=== PATIENT | female | born 1985 | race Caucasian/White ===

== ENCOUNTER 2018-09-11 15:16 | Inpatient (IN) | payer MEDICAID, OTHER ==
[~2018-09-11] VITALS: Ht 149.9 cm; Wt 59.1 kg
[2018-09-11] MEDS ORDERED: CLINDAMYCIN PMX 900MG/50ML 50 ML IV ONE (16:00)
[2018-09-11] MEDS ORDERED: SODIUM CHLORIDE FLUSH 10ML SYR IVF ONE (16:00)
[2018-09-11] MEDS ORDERED: SODIUM CHLORIDE 0.9% 1,000ML IVBOLUS ONE ×2 (16:00→18:00)
--- NOTE | 2018-09-11 16:13 | NUR ---
PT C/O FEVER AND PAIN IN L LEG D/T ABCESS. PT STATES SHE WAS FEELING DELIEROUS STARTING YESTERDAY. PT STATES HER L LEG ABCESS HAS BEEN THERE FOR LIKE ONE WEEK. ATTEMPTED EJ ACCESS ON PT, NOT SUCCESSFUL. LAB KAMILA BLOOD CULTURES. PT ON CONT PULSE OX, TISSUE INSERTER, NIBP.
[2018-09-11 16:17] LABS: BASOPHILS # (AUTO) 0.01 x10^3/uL (0-0.1); BASOPHILS % (AUTO) 0 % (0-1); EOSINOPHILS # (AUTO) 0.01 x10^3/uL (0-0.4); EOSINOPHILS % (AUTO) 0 % (1-7); LYMPHOCYTES # (AUTO) 1.27 x10^3/uL (1-3.4); LYMPHOCYTES % (AUTO) 10 % (22-44); MD NO; MEAN CORPUSCULAR HEMOGLOBIN 29.2 pg (27.0-34.8); MEAN CORPUSCULAR HGB CONC 33.1 g/dL (32.4-35.8); MEAN CORPUSCULAR VOLUME 88.2 fL (80-100); MEAN PLATELET VOLUME 7.9 fL (7.4-10.4); MONOCYTES # (AUTO) 0.59 x10^3/uL (0.2-0.8); MONOCYTES % (AUTO) 4 % (2-9); NEUTROPHILS # (AUTO) 11.54 x10^3/uL (1.8-6.8); NEUTROPHILS % (AUTO) 86 % (42-75); PLATELET COUNT 246 x10^3/uL (130-400); RED BLOOD COUNT 3.97 x10^6/uL (3.82-5.3); RED CELL DISTRIBUTION WIDTH 12.8 % (9.6-15.2)
[2018-09-11 16:23] LABS: INTERNATIONAL NORMALIZED RATIO 1.12 (0.93-1.1); PROTHROMBIN TIME 11.7 Seconds (9.6-11.5)
[2018-09-11 16:24] LABS: ALANINE AMINOTRANSFERASE 19 U/L (12-78); ALBUMIN 2.7 g/dL (3.4-5.0); ANION GAP 9 mmol/L (5-15); CALCIUM 8.5 mg/dL (8.5-10.1); CHLORIDE 103 mmol/L (98-107); CREATININE 0.86 mg/dL (0.55-1.02)
[2018-09-11 16:26] LABS: ALKALINE PHOSPHATASE 57 U/L (45-117); BILIRUBIN,TOTAL 0.5 mg/dL (0.2-1.0); TOTAL PROTEIN 7.4 g/dL (6.4-8.2)
[2018-09-11] MEDS ORDERED: LIDOCAINE 1%-EPI 1:100K, 20ML SQ ONE (16:30)
--- NOTE | 2018-09-11 16:32 | NUR ---
attempt left ej, unable to obtain access, will see if another rn is available to attempt us
[2018-09-11] MEDS ORDERED: LIDOCAINE-MPF 1%, 5ML ONE (16:41)
--- NOTE | 2018-09-11 16:45 | NUR ---
AGRICULTURAL SYSTEMS SPECIALIST IN TO ATTEMPT IV ACCESS C US
--- NOTE | 2018-09-11 16:59 | NUR ---
PIV ESTABLISHED, I/D SUPPLIES TO BEDSIDE FOR ER PROVIDER
[2018-09-11] MEDS ORDERED: CLINDAMYCIN PMX 900MG/50ML 50 ML ONE (17:20)
[2018-09-11] MEDS ORDERED: LEVOFLOXACIN/PMX 500MG/100ML 100 ML IV SCH (18:00)
[2018-09-11] MEDS ORDERED: SODIUM CHLORIDE FLUSH 10ML SYR IVF PRN (18:00)
[2018-09-11] MEDS ORDERED: LEVOFLOXACIN/PMX 500MG/100ML 100 ML ONE (18:28)
--- NOTE | 2018-09-11 18:32 | NUR ---
REPORT GIVEN TO RECBRYCE GRUBBS
[2018-09-11] MEDS ORDERED: POTA10CA PO (18:49)
[2018-09-11] MEDS ORDERED: DIGO250T PO (18:49)
[2018-09-11] MEDS ORDERED: LEVE500V6 PO (18:49)
[2018-09-11] MEDS ORDERED: FURO-93 PO (18:49)
[2018-09-11] MEDS ORDERED: ASPI-515 PO (18:49)
[2018-09-11] MEDS ORDERED: METO25TA35 PO (18:49)
[2018-09-11] MEDS ORDERED: POTASSIUM CHLORIDE 20 MEQ TAB.ER.PRT PO ONE (19:00)
[2018-09-11] MEDS ORDERED: LORazepam 1MG TABLET PO PRN (19:00)
[2018-09-11] MEDS ORDERED: ENOXAPARIN 40 MG/0.4 ML SQ SCH (19:00)
[2018-09-11] MEDS ORDERED: ACETAMINOPHEN 325 MG TABLET PO PRN (19:00)
[2018-09-11] MEDS ORDERED: DOCUSATE 100 MG CAPSULE PO PRN (19:00)
[2018-09-11] MEDS ORDERED: ENALAPRILAT 1.25 MG/ML, 2ML IVPush PRN (19:00)
[2018-09-11] MEDS ORDERED: LIDODERM 5% PATCH TD PRN (19:00)
[2018-09-11] MEDS ORDERED: NICOTINE GUM 4 MG BC PRN (19:00)
--- NOTE | 2018-09-11 19:22 | NUR ---
PT RESTING CALMLY, DENIES NEEDS, MONITORS IN PLACE, CALL LIGHT WITHIN REACH. AWAITING ROOM FOR ADMIT
[2018-09-11] MEDS ORDERED: LEVE500T8 PO (21:42)
[2018-09-11] MEDS: METOPROLOL TARTRATE 25 MG TABLET PO SCH (21:46)
[2018-09-11 21:50] VITALS: BP 103/70
[2018-09-12 00:53] VITALS: BP 99/57
[2018-09-12 01:02] LABS: CULTURE INDICATED? YES; MICROSCOPIC INDICATED
[2018-09-12 07:42] VITALS: BP 91/58
[2018-09-12 07:44] LABS: BASOPHILS # (AUTO) 0.01 x10^3/uL (0-0.1); BASOPHILS % (AUTO) 0 % (0-1); EOSINOPHILS # (AUTO) 0.02 x10^3/uL (0-0.4); EOSINOPHILS % (AUTO) 0 % (1-7); LYMPHOCYTES # (AUTO) 1.04 x10^3/uL (1-3.4); LYMPHOCYTES % (AUTO) 12 % (22-44); MD NO; MEAN CORPUSCULAR HEMOGLOBIN 28.6 pg (27.0-34.8); MEAN CORPUSCULAR HGB CONC 32.1 g/dL (32.4-35.8); MEAN CORPUSCULAR VOLUME 89.1 fL (80-100); MEAN PLATELET VOLUME 7.9 fL (7.4-10.4); MONOCYTES # (AUTO) 0.65 x10^3/uL (0.2-0.8); MONOCYTES % (AUTO) 8 % (2-9); NEUTROPHILS # (AUTO) 7.05 x10^3/uL (1.8-6.8); NEUTROPHILS % (AUTO) 80 % (42-75); PLATELET COUNT 218 x10^3/uL (130-400); RED BLOOD COUNT 3.51 x10^6/uL (3.82-5.3); RED CELL DISTRIBUTION WIDTH 12.9 % (9.6-15.2)
[2018-09-12 07:46] LABS: ANION GAP 7 mmol/L (5-15); CHLORIDE 111 mmol/L (98-107)
[2018-09-12] MEDS ORDERED: GABA400C PO (07:59)
[2018-09-12] MEDS ORDERED: LEVETIRACETAM 500 MG TABLET PO SCH (09:00)
[2018-09-12] MEDS ORDERED: FUROSEMIDE 20 MG TABLET PO SCH (09:00)
[2018-09-12] MEDS ORDERED: DIGOXIN 0.25 MG TABLET PO SCH (09:00)
[2018-09-12] MEDS ORDERED: POTASSIUM CHLORIDE 10 MEQ TABLET.ER PO SCH (09:00)
[2018-09-12] MEDS ORDERED: ASPIRIN 81 MG TABLET EC PO SCH (09:00)
[2018-09-12 09:50] VITALS: BP 120/70
[2018-09-12] MEDS: GABAPENTIN 400 MG CAPSULE PO SCH ×2 (09:53→15:42)
[2018-09-12] MEDS: METOPROLOL TARTRATE 25 MG TABLET PO SCH (09:57)
[2018-09-12] MEDS ORDERED: CLINDAMYCIN PMX 900MG/50ML 50 ML IV SCH (11:30)
[2018-09-12 11:57] VITALS: BP 97/60
[2018-09-12 16:32] VITALS: BP_SYST 82; BP_SYST 84; BP_DIAS 50; BP_DIAS 51
[2018-09-12] MEDS ORDERED: LEVOFLOXACIN/PMX 500MG/100ML 100 ML IV SCH (19:30)
== END 2018-09-12 18:20 | disposition left against medical advice (07) | DRG 872 ==
LOC: ED 16:57 → EDIP 17:49 → 3NE 18:45 → EDIP 18:51 → 5SO 19:55
PROVIDERS: ADMIT Family Medicine; ATTEND Family Medicine
PROC: 0Y9L0ZZ Drainage of Left Ankle Region, Open Approach (ICD-10-PCS; principal; 2018-09-11)
PROC: 0X9F0ZZ Drainage of Left Lower Arm, Open Approach (ICD-10-PCS; 2018-09-11)
DX: A41.9 Sepsis, unspecified organism (principal); F11.23 Opioid dependence with withdrawal; I42.7 Cardiomyopathy due to drug and external agent; L02.413 Cutaneous abscess of right upper limb; L03.116 Cellulitis of left lower limb; I42.0 Dilated cardiomyopathy; E87.6 Hypokalemia; Z53.21 Procedure and treatment not carried out due to patient leaving prior to being seen by health care provider; F15.10 Other stimulant abuse, uncomplicated; F17.200 Nicotine dependence, unspecified, uncomplicated; G40.909 Epilepsy, unspecified, not intractable, without status epilepticus; R73.9 Hyperglycemia, unspecified; I48.91 Unspecified atrial fibrillation; I50.9 Heart failure, unspecified; Z59.0 Homelessness; Z63.8 Other specified problems related to primary support group; Z82.49 Family history of ischemic heart disease and other diseases of the circulatory system; Z88.0 Allergy status to penicillin; Z88.1 Allergy status to other antibiotic agents
CPT/HCPCS: 36415; 80048; 80053; 80074; 81001; 83605; 83735; 84145; 85025; 85610; 85730; 87040; 87086; 87806; 93005; 96365; 96368; G0378; J1956; J3490; G0475; J7030

== ENCOUNTER 2018-10-07 17:13 | Emergency (ER) | payer MEDICAID ==
[~2018-10-07] VITALS: Ht 149.9 cm; Wt 55.0 kg
[~2018-10-07 17:13] MED LIST: ASPI-515 PO; DIGO250T PO; FURO-93 PO; GABA400C PO; LEVE500T8 PO; LEVE500V6 PO; METO25TA35 PO; POTA10CA PO
[2018-10-07] MEDS ORDERED: ACETAMINOPHEN 500 MG TABLET PO ONE (18:00)
[2018-10-07] MEDS ORDERED: ACETAMINOPHEN 500 MG TABLET ONE (18:06)
--- NOTE | 2018-10-07 18:11 | NUR ---
Pt presents to ED with c/o left sided rib pain starting, "a few days ago and has progressively gotten worse after coughing." Pt denies cp, sob, n/v/d, trauma, or syncope. CMS intact. Call light within reach. NADN. No needs expressed at this time.
[2018-10-07] MEDS ORDERED: HYDROcodone/APAP 5/325 TABLET PO STA (18:50)
[2018-10-07] MEDS ORDERED: BENZONATATE 100 MG CAPSULE ONE (18:55)
[2018-10-07] MEDS ORDERED: HYDROcodone/APAP 5/325 TABLET ONE (18:55)
[2018-10-07] MEDS ORDERED: BENZONATATE 100 MG CAPSULE PO ONE (19:00)
--- NOTE | 2018-10-07 19:02 | NUR ---
Provided report to ROMIE Elizabeth and ROMIE Hung. All questions answered. ROMIE Elizabeth and Anabell RN to assume care of pt.
[2018-10-07 19:22] VITALS: BP 125/71
--- NOTE | 2018-10-07 19:22 | NUR ---
Patient given discharge instructions and they have confirmed that they understand the instructions. Patient ambulatory with steady gait.
== END 2018-10-07 19:24 | disposition home or self-care (01) ==
LOC: ED 18:15
DX: S22.32XA Fracture of one rib, left side, initial encounter for closed fracture (principal); J15.8 Pneumonia due to other specified bacteria; F10.229 Alcohol dependence with intoxication, unspecified; F15.129 Other stimulant abuse with intoxication, unspecified; Y90.0 Blood alcohol level of less than 20 mg/100 ml; F17.200 Nicotine dependence, unspecified, uncomplicated; Z72.9 Problem related to lifestyle, unspecified; I48.91 Unspecified atrial fibrillation; I50.9 Heart failure, unspecified; X58.XXXA Exposure to other specified factors, initial encounter; Y93.89 Activity, other specified; Y92.89 Other specified places as the place of occurrence of the external cause; Y99.8 Other external cause status
CPT/HCPCS: 99284

== ENCOUNTER 2019-10-14 23:51 | Inpatient (IN) | payer MEDICAID ==
[~2019-10-14] VITALS: Ht 149.9 cm; Wt 41.2 kg
[~2019-10-14 23:51] MED LIST changes: -DIGO250T PO; +DIGO250T3 PO
--- NOTE | 2019-10-15 00:25 | NUR ---
LATE ENTRY: PT CAME IN DUE TO GETTING DC'D FROM [place] AND BELIEVING THAT SHE SHOULD STILL BE ON THE ABX THAT SHE WAS ON FOR THE "ABCESS ON MY HEART THAT SPREAD TO MY LUNGS". PT DENIES CHEST PAIN, DIFFICULTY BREATHING, OR ANY OTHER DISCOMFORT TO THIS RN. PT STATES SHE USED HEROIN EARLIER. PT PLACED ON BP/SPO2/ECG MONITORING. WCTM.
[2019-10-15] MEDS ORDERED: SODIUM CHLORIDE FLUSH 10ML SYR IVF ONE (00:30)
[2019-10-15] MEDS ORDERED: SODIUM CHLORIDE 0.9% 1,000ML IVBOLUS ONE (00:30)
--- NOTE | 2019-10-15 00:32 | NUR ---
PT RESTING IN GURNEY, APPEARS COMFORTABLE, CALL LIGHT ON LAP, DENIES ANY ADDITIONAL NEEDS AT THIS TIME. NO CHANGE IN CONDITION. RAD AT BS. PT LABS COLLECTED. WCTM. WAITING FOR RESULTS.
[2019-10-15 00:36] LABS: BASOPHILS % (AUTO) 1 % (0-1); EOSINOPHILS # (AUTO) 0.18 x10^3/uL (0-0.4); EOSINOPHILS % (AUTO) 1 % (1-7); LYMPHOCYTES # (AUTO) 3.31 x10^3/uL (1-3.4); LYMPHOCYTES % (AUTO) 21 % (22-44); MD NO; MEAN CORPUSCULAR HEMOGLOBIN 27.4 pg (27.0-34.8); MEAN CORPUSCULAR HGB CONC 32.9 g/dL (32.4-35.8); MEAN PLATELET VOLUME 6.6 fL (7.4-10.4); MONOCYTES # (AUTO) 0.77 x10^3/uL (0.2-0.8); MONOCYTES % (AUTO) 5 % (2-9); NEUTROPHILS # (AUTO) 11.32 x10^3/uL (1.8-6.8); NEUTROPHILS % (AUTO) 72 % (42-75); PLATELET COUNT 381 x10^3/uL (130-400); RED BLOOD COUNT 3.63 x10^6/uL (3.82-5.3); RED CELL DISTRIBUTION WIDTH 20.3 % (9.6-15.2)
[2019-10-15 00:46] LABS: ALANINE AMINOTRANSFERASE 24 U/L (12-78); ALBUMIN 2.4 g/dL (3.4-5.0); ANION GAP 7 mmol/L (5-15); CALCIUM 8.1 mg/dL (8.5-10.1); CHLORIDE 101 mmol/L (98-107); CREATININE 0.92 mg/dL (0.55-1.02)
[2019-10-15 00:48] LABS: ALKALINE PHOSPHATASE 83 U/L (45-117); BILIRUBIN,TOTAL 0.4 mg/dL (0.2-1.0); TOTAL PROTEIN 8.6 g/dL (6.4-8.2)
[2019-10-15] MEDS ORDERED: VANCOMYCIN PER PHARMACY MC ONE (01:30)
[2019-10-15] MEDS ORDERED: CEFTRIAXONE PMX 1GM/50ML 50 ML IVPB ONE (01:30)
--- NOTE | 2019-10-15 01:30 | NUR ---
LATE ENTRY: RN SPOKE TO PHARMACY REGARDING ROCEPHIN AND ALLERGY LIST. PT IS UNSURE OF REACTION TO [facility]. PT RESTING IN [facility], CONDITION UNCHANGED, WCTM. CALL LIGHT ON LAP, WATCHING TV. WAITING FOR ADMIT
[2019-10-15 01:41] LABS: MICROSCOPIC INDICATED
[2019-10-15] MEDS ORDERED: VANCOMYCIN PMX 1GM/200ML 200 ML IV ONE (02:00)
--- NOTE | 2019-10-15 02:30 | NUR ---
PT RESTING IN [facility], CONDITION UNCHANGED. WCTM. NAD. WAITING FOR ADMIT BED
--- NOTE | 2019-10-15 03:10 | NUR ---
PT MEDICATED PER MAY. COVID SWAB WALKED TO LAB, PT DID NOT TOLERATE COVID SWAB WELL. PT BEGAN YELLING AT RN POST SWAB. PT NAD. GIVEN SNACKS PER REQUEST. WCTM. WAITING FOR ADMIT BED.
[2019-10-15] MEDS ORDERED: SODIUM CHLORIDE 0.9% 1,000 ML IV SCH (03:32)
[2019-10-15] MEDS: PIPERACILLIN/TAZO/PMX 3.375GM 50 ML IV SCH ×7 (04:00→22:42)
[2019-10-15] MEDS ORDERED: ACETAMINOPHEN 325 MG TABLET PO PRN (04:00)
[2019-10-15] MEDS ORDERED: LABETALOL 5MG/ML, 20ML IVPush PRN (04:00)
[2019-10-15] MEDS ORDERED: GABAPENTIN 300 MG CAPSULE PO PRN (04:00)
[2019-10-15] MEDS ORDERED: THIAMINE 200 MG in SODIUM CHLORIDE 0.9% 50 ML IV ONE (04:00)
[2019-10-15] MEDS ORDERED: TRAZODONE 50MG TABLET PO PRN (04:00)
[2019-10-15] MEDS ORDERED: morphine SULFATE 10 MG/ML, 1ML IVPush PRN (04:00)
--- NOTE | 2019-10-15 04:07 | NUR ---
Received report from Shashank GRUBBS. Pt in hospital bed, eating at this time. Pt voices no complaints or concerns.
[2019-10-15] MEDS ORDERED: PIPERACILLIN/TAZO/PMX 3.375GM 50 ML ONE (04:14)
[2019-10-15] MEDS ORDERED: CEFTRIAXONE PMX 1GM/50ML 50 ML ONE (04:14)
--- NOTE | 2019-10-15 05:30 | NUR ---
Pt is sleeping at this time, eyes closed and even breathing noted. Pt on pulse ox and b/p cuff.
--- NOTE | 2019-10-15 06:58 | NUR ---
bedside report from ROMIE Wynn.
--- NOTE | 2019-10-15 08:01 | NUR ---
REPORT TO ROMIE PIPER. ALL QUESTIONS ANSWERED.
--- NOTE | 2019-10-15 08:22 | NUR ---
PT TRANSPORTED TO FLOOR. PT LEFT WITH ALL PERSONAL BELONGINGS. PT [id number]. DEA.
[2019-10-15] MEDS ORDERED: PHARMACOKINETIC MONITORING MC PRN (10:00)
[2019-10-15] MEDS: SENNA/DOCUSATE TABLET PO SCH (10:03)
[2019-10-15] MEDS: ONDANSETRON 2MG/ML, 2ML IVPush PRN ×2 (11:25→14:22)
[2019-10-15] MEDS ORDERED: LORazepam 2 MG/ML, 1ML IVPush PRN (11:30)
[2019-10-15 12:14] VITALS: BP 129/59
[2019-10-15] MEDS: VANCOMYCIN 800 MG in SODIUM CHLORIDE 0.9% 100 ML IV SCH ×2 (14:00→20:55)
[2019-10-15] MEDS ORDERED: VANCOMYCIN PER PHARMACY MC PRN (14:00)
[2019-10-15] MEDS ORDERED: OXYcodone/APAP 5/325MG TABLET ONE (14:17)
[2019-10-15] MEDS ORDERED: ONDANSETRON ODT 4 MG ONE (14:19)
[2019-10-15] MEDS ORDERED: OXYcodone IR 5MG TABLET ONE (14:28)
[2019-10-15] MEDS: OXYcodone IR 5MG TABLET PO PRN ×2 (14:29→21:09)
[2019-10-15 19:15] VITALS: BP 113/72
[2019-10-15] MEDS: LORazepam 1MG TABLET PO PRN (21:09)
[2019-10-15] MEDS ORDERED: NICOTINE 21 MG/24 HR PATCH.TD24 TD SCH (22:00)
[2019-10-16] MEDS: LORazepam 1MG TABLET PO PRN (03:32)
[2019-10-16] MEDS: OXYcodone IR 5MG TABLET PO PRN ×2 (03:41→10:44)
[2019-10-16 09:12] VITALS: BP 108/69
[2019-10-16] MEDS: PIPERACILLIN/TAZO/PMX 3.375GM 50 ML IV SCH (10:00)
[2019-10-16] MEDS: SENNA/DOCUSATE TABLET PO SCH (10:45)
[2019-10-16 12:20] VITALS: BP 115/73
[2019-10-16 12:43] VITALS: BP 106/66
== END 2019-10-16 13:15 | disposition left against medical advice (07) | DRG 871 ==
LOC: ED 10-15 01:14 → EDIP 10-15 02:45 → 3N 10-15 08:34
PROVIDERS: ADMIT Family Medicine; ATTEND Internal Medicine
PROC: 02HV33Z Insertion of Infusion Device into Superior Vena Cava, Percutaneous Approach (ICD-10-PCS; principal; 2019-10-15)
DX: A41.02 Sepsis due to Methicillin resistant Staphylococcus aureus (principal); E43 Unspecified severe protein-calorie malnutrition; I33.0 Acute and subacute infective endocarditis; J15.9 Unspecified bacterial pneumonia; J85.1 Abscess of lung with pneumonia; R65.21 Severe sepsis with septic shock; E87.1 Hypo-osmolality and hyponatremia; I50.22 Chronic systolic (congestive) heart failure; Z68.1 Body mass index [BMI] 19.9 or less, adult; D64.9 Anemia, unspecified; F11.10 Opioid abuse, uncomplicated; F15.10 Other stimulant abuse, uncomplicated; F17.200 Nicotine dependence, unspecified, uncomplicated; G40.909 Epilepsy, unspecified, not intractable, without status epilepticus; I07.9 Rheumatic tricuspid valve disease, unspecified; I48.91 Unspecified atrial fibrillation; F19.10 Other psychoactive substance abuse, uncomplicated; K08.89 Other specified disorders of teeth and supporting structures; Z20.828 Contact with and (suspected) exposure to other viral communicable diseases; Z59.0 Homelessness; Z63.8 Other specified problems related to primary support group; Z91.19 Patient's noncompliance with other medical treatment and regimen; Z88.8 Allergy status to other drugs, medicaments and biological substances; Z88.2 Allergy status to sulfonamides
CPT/HCPCS: 36415; 71045; 80053; 81001; 83605; 84145; 85025; 87040; 87086; 87635; 93005; 93306; 96374; 96375; 99291; 99406; G0378; J0696; J2405; J2543; J3370; J3411; J2060; J7030

== ENCOUNTER 2020-10-27 18:07 | Inpatient (IN) | payer MEDICAID ==
[~2020-10-27] VITALS: Ht 149.9 cm; Wt 46.0 kg
[~2020-10-27 18:07] MED LIST changes: -ASPI-515 PO; +ASPI-963 PO
--- NOTE | 2020-10-27 18:27 | NUR ---
TO ROOM FROM [facility]
--- NOTE | 2020-10-27 18:46 | NUR ---
BIB EMS WITH CHIEF C/O INTERMITTENT RIGHT KNEE PAIN AND SWELLING X2 YEARS. PATIENT HAS HAD KNEE DRAINED BEFORE. PATIENT REFUSED IV EN ROUTE, TEMP 102.7 AND HR 118 EN ROUTE, OTHER VSS. PATIENT REPORTS TAKING TYLENOL AT HOME. PATIENT'S TEMP UPON ASSESSMENT 101.2, OTHER VSS, NADN, CALL LIGHT WITHIN REACH.
--- NOTE | 2020-10-27 19:19 | NUR ---
MD TO BEDSIDE TO EVAL PT. PT RELUCTANT TO ALLOW TREATMENT, AND CONVINCED THAT IT IS WHAT SHE'S HERE FOR, SO SHE IS NOW COMPLYING. PANTS REMOVED, PRIVACY MAINTAINED FOR PT. PT HAS RED LILIANA AND SCAB TO INTERNAL PORTION ABOVE RIGHT KNEE. C/O PAIN AND RIGHT KNEE HAS SWELLING.
[2020-10-27] MEDS ORDERED: SODIUM CHLORIDE 0.9% 1,000ML IVBOLUS ONE (19:30)
[2020-10-27] MEDS ORDERED: ACETAMINOPHEN 325 MG TABLET PO ONE (19:30)
[2020-10-27] MEDS ORDERED: MORPHINE SULFATE 4 MG/ML, 1ML IVPush PRN (19:30)
[2020-10-27] MEDS ORDERED: SODIUM CHLORIDE FLUSH 10ML SYR IVF ONE (19:30)
[2020-10-27 19:49] LABS: BASOPHILS % (AUTO) 1 % (0-1); EOSINOPHILS % (AUTO) 1 % (1-7); LYMPHOCYTES % (AUTO) 15 % (22-44); MEAN CORPUSCULAR HEMOGLOBIN 26.3 pg (27.0-34.8); MEAN CORPUSCULAR HGB CONC 33.1 g/dL (32.4-35.8); MEAN PLATELET VOLUME 7.5 fL (7.4-10.4); MONOCYTES % (AUTO) 6 % (2-9); NEUTROPHILS % (AUTO) 77 % (42-75); PLATELET COUNT 282 x10^3/uL (130-400); RED BLOOD COUNT 4.28 x10^6/uL (3.82-5.3); RED CELL DISTRIBUTION WIDTH 14.3 % (9.6-15.2)
[2020-10-27 19:53] LABS: HCT (SEDRATE) 33.7 % (34.6-47.8)
--- NOTE | 2020-10-27 19:55 | NUR ---
LAB TECHS TO BEDSIDE TO DRAW BLOOD AND BLOOD CULTURES X2. XRAYS DONE, AND RN TO BEDSIDE TO TRY AN IV VIA ULTRASOUND.
[2020-10-27 19:58] LABS: ALANINE AMINOTRANSFERASE 10 U/L (12-78); ALBUMIN 2.3 g/dL (3.4-5.0); ANION GAP 7 mmol/L (5-15); CALCIUM 8.2 mg/dL (8.5-10.1); CHLORIDE 104 mmol/L (98-107); CREATININE 0.75 mg/dL (0.55-1.02)
[2020-10-27 20:05] LABS: ALKALINE PHOSPHATASE 69 U/L (45-117); BILIRUBIN,TOTAL 0.8 mg/dL (0.2-1.0); TOTAL PROTEIN 7.2 g/dL (6.4-8.2)
--- NOTE | 2020-10-27 20:07 | NUR ---
RN TO BEDSIDE TO ATTEMPT ULTRASOUND IV, AND ATTEMPTED TO PLACE A RIGHT EJ IV. PT GRUNTED AND MOVED THE WHOLE TIME, ADDING TO THE DIFFICULTY. EJ UNSUCCESFUL. MD AWARE. PT NOW REFUSING ANY MORE ATTEMPTS. ADVISED.
[2020-10-27] MEDS ORDERED: MORPHINE SULFATE 4 MG/ML, 1ML ONE (20:20)
[2020-10-27] MEDS ORDERED: ACETAMINOPHEN 325 MG TABLET ONE (20:21)
[2020-10-27] MEDS ORDERED: LIDOCAINE-MPF 1%, 5ML ONE (20:26)
[2020-10-27] MEDS ORDERED: LIDOCAINE 1%, 2ML INFIL ONE (20:30)
--- NOTE | 2020-10-27 20:37 | NUR ---
CONSENT FOR I&D OBTAINED AND SIGNED BY PT, AND ALL EQUIPMENT TO BEDSIDE FOR PROCEDURE.
--- NOTE | 2020-10-27 20:59 | NUR ---
RIGHT KNEE DRAINED AFTER LOCAL ANESTHETIA TO SITE. PT SCREAMING AND CRYING DURING PROCEDURE, AFTER LOCAL NUMBING MEDS AND ALSO 4MG OF MORPHINE IV. PT RESTING NOW POST PROCEDURE.
[2020-10-27] MEDS ORDERED: POTASSIUM CHLORIDE 20 MEQ TAB.ER.PRT ONE (21:25)
[2020-10-27] MEDS ORDERED: POTASSIUM CHLORIDE 20 MEQ TAB.ER.PRT PO ONE (21:30)
[2020-10-27] MEDS ORDERED: VANCOMYCIN PER PHARMACY MC PRN (23:00)
[2020-10-27] MEDS ORDERED: VANCOMYCIN 1,000 MG in SODIUM CHLORIDE 0.9% 100 ML IV ONE (23:00)
[2020-10-27] MEDS ORDERED: CEFAZOLIN PMX 1GM/50ML 50 ML IV ONE (23:00)
[2020-10-27] MEDS ORDERED: CEFAZOLIN PMX 1GM/50ML 50 ML ONE (23:04)
[2020-10-27] MEDS ORDERED: CLINDAMYCIN PMX 600MG/50ML 50 ML ONE ×2 (23:14)
[2020-10-27] MEDS ORDERED: CLINDAMYCIN PMX 600MG/50ML 50 ML IV ONE (23:30)
--- NOTE | 2020-10-27 23:42 | NUR ---
ANTIBIOTICS HUNG, PT TO BE ADMITTED. RESTING COMFORTABLY IN BED SLEEPING. NO ACUTE DISTRESS.
[2020-10-28] MEDS ORDERED: MELATONIN 5 MG TABLET PO PRN
[2020-10-28] MEDS ORDERED: POLYETHYLENE GLYCOL 17 GM PACKET PO PRN
[2020-10-28] MEDS ORDERED: LABETALOL 5MG/ML, 20ML IVPush PRN
[2020-10-28] MEDS ORDERED: CEFTRIAXONE 2 GM in DEXTROSE 5% 50 ML IVPB SCH
--- NOTE | 2020-10-28 00:35 | NUR ---
REPORT CALLED TO REID GRUBBS AND PT RESTING AND WAITING TO GO TO FLOOR. SANDWICH AND CHIPS PROVIDED TO PT FOR HER TRANSFER TO FLOOR.
--- NOTE | 2020-10-28 01:16 | NUR ---
PT REPORT CALLED TO FLOOR RN, AND PT TRANSFERRED TO FLOOR WITHOUT ISSUE. PIV TO R EJ INTACT.
[2020-10-28] MEDS ORDERED: CEFTRIAXONE MC SCH (01:30)
[2020-10-28 01:31] VITALS: BP 94/62
[2020-10-28] MEDS ORDERED: CLINDAMYCIN PMX 600MG/50ML 50 ML IV SCH (05:30)
[2020-10-28] MEDS ORDERED: VANCOMYCIN PMX 1GM/200ML 200 ML IV ONE (07:00)
[2020-10-28] MEDS ORDERED: VANCOMYCIN PER PHARMACY MC PRN (07:00)
[2020-10-28] MEDS ORDERED: PHARMACOKINETIC CONSULTATION MC ONE (07:30)
[2020-10-28] MEDS ORDERED: PHARMACOKINETIC MONITORING MC PRN (07:30)
[2020-10-28] MEDS ORDERED: VANCOMYCIN 1,200 MG in SODIUM CHLORIDE 0.9% 250 ML IV ONE (07:30)
[2020-10-28 08:05] VITALS: BP 111/73
[2020-10-28] MEDS: MEROPENEM 1 GM in SODIUM CHLORIDE 0.9% 100 ML IV SCH ×3 (08:07→23:30)
[2020-10-28 09:43] LABS: BASOPHILS % (AUTO) 1 % (0-1); EOSINOPHILS % (AUTO) 1 % (1-7); LYMPHOCYTES % (AUTO) 22 % (22-44); MEAN CORPUSCULAR HEMOGLOBIN 26.7 pg (27.0-34.8); MEAN CORPUSCULAR HGB CONC 33.3 g/dL (32.4-35.8); MONOCYTES % (AUTO) 7 % (2-9); NEUTROPHILS % (AUTO) 69 % (42-75); PLATELET COUNT 196 x10^3/uL (130-400); RED BLOOD COUNT 4.09 x10^6/uL (3.82-5.3); RED CELL DISTRIBUTION WIDTH 14.5 % (9.6-15.2)
[2020-10-28 09:45] LABS: ANION GAP 5 mmol/L (5-15); CALCIUM 7.4 mg/dL (8.5-10.1); CHLORIDE 115 mmol/L (98-107); CREATININE 0.39 mg/dL (0.55-1.02)
[2020-10-28] MEDS ORDERED: OXYcodone 5 MG/5 ML ORAL.SOL UDC PO PRN (13:00)
[2020-10-28] MEDS ORDERED: LABETALOL 5MG/ML, 20ML IV PRN (13:00)
[2020-10-28] MEDS ORDERED: MEPERIDINE/PF 25MG/0.5ML IVPush PRN (13:00)
[2020-10-28] MEDS ORDERED: hydrALAzine 20 MG/ML, 1ML IV PRN (13:00)
[2020-10-28] MEDS ORDERED: PROMETHAZINE 25 MG/ML, 1ML IVPush PRN (13:00)
[2020-10-28] MEDS ORDERED: ACETAMINOPHEN 325 MG TABLET PO PRN ×2 (13:00)
[2020-10-28] MEDS ORDERED: ONDANSETRON 2MG/ML, 2ML IVPush PRN ×2 (13:00)
[2020-10-28] MEDS ORDERED: FENTANYL PF 100 MCG/2ML IV PRN (13:00)
[2020-10-28 13:24] LABS: HCG UR SG 1.019 (1.003-1.030)
[2020-10-28 13:34] LABS: MICROSCOPIC INDICATED
[2020-10-28] MEDS ORDERED: MIDAZOLAM 1 MG/ML, 2ML ONE (13:50)
[2020-10-28] MEDS ORDERED: FENTANYL PF 250 MCG/5ML ONE (13:51)
[2020-10-28] MEDS ORDERED: ONDANSETRON 2MG/ML, 2ML ONE (14:50)
[2020-10-28] MEDS ORDERED: DEXAMETHASONE 4 MG/ML, 1ML ONE (14:50)
[2020-10-28] MEDS ORDERED: PROPOFOL 10 MG/ML, 20ML ONE (14:50)
[2020-10-28] MEDS ORDERED: HYDROmorphone 2 MG/ML, 1ML ONE (15:25)
[2020-10-28] MEDS: HYDROmorphone 1 MG/ML, 1ML INJ IVPush PRN ×4 (15:26→15:41)
[2020-10-28] MEDS ORDERED: OXYcodone 5 MG/5 ML ORAL.SOL UDC ONE (15:28)
[2020-10-28] MEDS: LORazepam 2 MG/ML, 1ML IVPush PRN ×2 (16:10→22:14)
[2020-10-28 16:17] VITALS: BP 97/62
[2020-10-28] MEDS: VANCOMYCIN 1,000 MG in SODIUM CHLORIDE 0.9% 100 ML IV SCH (17:41)
[2020-10-28 19:28] VITALS: BP 114/74
[2020-10-28] MEDS: HYDROmorphone 2 MG/ML, 1ML IVPush PRN (22:43)
[2020-10-29] MEDS: OXYcodone IR 5MG TABLET PO PRN (00:45)
[2020-10-29 00:48] VITALS: BP 92/59
[2020-10-29] MEDS: VANCOMYCIN 1,000 MG in SODIUM CHLORIDE 0.9% 100 ML IV SCH ×3 (00:51→16:29)
[2020-10-29] MEDS: LORazepam 2 MG/ML, 1ML IVPush PRN ×6 (03:41→23:55)
[2020-10-29 03:53] VITALS: BP 120/77
[2020-10-29] MEDS: HYDROmorphone 2 MG/ML, 1ML IVPush PRN ×5 (04:29→20:30)
[2020-10-29] MEDS ORDERED: HALOPERIDOL 5 MG/ML IM PRN (06:00)
[2020-10-29] MEDS: MEROPENEM 1 GM in SODIUM CHLORIDE 0.9% 100 ML IV SCH (06:50)
[2020-10-29 08:00] VITALS: BP 111/70
[2020-10-29 08:37] LABS: ALBUMIN 2.2 g/dL (3.4-5.0); CALCIUM 8.2 mg/dL (8.5-10.1)
[2020-10-29 08:40] LABS: ALANINE AMINOTRANSFERASE 12 U/L (12-78); ALKALINE PHOSPHATASE 67 U/L (45-117); BILIRUBIN,TOTAL 0.4 mg/dL (0.2-1.0); CREATININE 0.55 mg/dL (0.55-1.02); TOTAL PROTEIN 6.9 g/dL (6.4-8.2)
[2020-10-29 08:46] LABS: ANION GAP 6 mmol/L (5-15); CHLORIDE 107 mmol/L (98-107)
[2020-10-29 08:48] LABS: BASOPHILS % (AUTO) 1 % (0-1); EOSINOPHILS % (AUTO) 0 % (1-7); LYMPHOCYTES % (AUTO) 22 % (22-44); MEAN CORPUSCULAR HEMOGLOBIN 26.4 pg (27.0-34.8); MEAN CORPUSCULAR HGB CONC 32.9 g/dL (32.4-35.8); MONOCYTES % (AUTO) 9 % (2-9); NEUTROPHILS % (AUTO) 68 % (42-75); PLATELET COUNT 301 x10^3/uL (130-400); RED BLOOD COUNT 3.93 x10^6/uL (3.82-5.3); RED CELL DISTRIBUTION WIDTH 14.4 % (9.6-15.2)
[2020-10-29 14:06] VITALS: BP 123/85
[2020-10-29 20:42] VITALS: BP 94/58
[2020-10-30 00:07] VITALS: BP 97/62
[2020-10-30] MEDS: HYDROmorphone 2 MG/ML, 1ML IVPush PRN ×4 (01:30→16:24)
[2020-10-30] MEDS ORDERED: VANCOMYCIN 1,000 MG in SODIUM CHLORIDE 0.9% 100 ML IV SCH (05:30)
[2020-10-30 06:02] VITALS: BP 105/69
[2020-10-30 08:55] VITALS: BP 99/60
[2020-10-30 14:00] VITALS: BP 94/58
[2020-10-30] MEDS: LORazepam 2 MG/ML, 1ML IVPush PRN (15:09)
[2020-10-30] MEDS ORDERED: HALOPERIDOL 5 MG/ML IM ONE (15:30)
[2020-10-30] MEDS ORDERED: HALOPERIDOL 5 MG/ML IM PRN (16:00)
[2020-10-30 19:22] VITALS: BP 98/64
[2020-10-30] MEDS: QUETIAPINE 25MG TABLET PO SCH (20:35)
[2020-10-30] MEDS: OXYcodone IR 5MG TABLET PO PRN (20:36)
[2020-10-30 22:52] LABS: AMPHETAMINE SCREEN, URINE Negative (Negative); BARBITURATE SCREEN, URINE Negative (Negative); BENZODIAZEPINE SCREEN, URINE Negative (Negative); CANNABINOID SCREEN, URINE Negative (Negative); COCAINE SCREEN, URINE Negative (Negative); METHADONE SCREEN, URINE Negative (Negative); OPIATE SCREEN, URINE Positive (Negative)
[2020-10-31] MEDS: OXYcodone IR 5MG TABLET PO PRN ×2 (00:32→05:06)
[2020-10-31 02:21] VITALS: BP 106/69
[2020-10-31 07:55] VITALS: BP 109/69
[2020-10-31] MEDS: QUETIAPINE 25MG TABLET PO SCH (09:00)
[2020-10-31] MEDS ORDERED: DAPTOMYCIN 320 MG in SODIUM CHLORIDE 0.9% 100 ML IVPB SCH (10:30)
== END 2020-10-31 09:40 | disposition left against medical advice (07) | DRG 871 ==
LOC: ED 23:24 → EDIP 23:38 → 4NE 10-28 00:58
PROVIDERS: ADMIT Internal Medicine; ATTEND Internal Medicine
PROC: 0S9C3ZZ Drainage of Right Knee Joint, Percutaneous Approach (ICD-10-PCS; 2020-10-27)
PROC: 05HY33Z Insertion of Infusion Device into Upper Vein, Percutaneous Approach (ICD-10-PCS; 2020-10-27)
PROC: 0HDKXZZ Extraction of Right Lower Leg Skin, External Approach (ICD-10-PCS; principal; 2020-10-28 14:15)
DX: A41.01 Sepsis due to Methicillin susceptible Staphylococcus aureus (principal); E43 Unspecified severe protein-calorie malnutrition; G93.40 Encephalopathy, unspecified; M00.9 Pyogenic arthritis, unspecified; Z53.29 Procedure and treatment not carried out because of patient's decision for other reasons; Z20.822 Contact with and (suspected) exposure to COVID-19; E87.6 Hypokalemia; F11.10 Opioid abuse, uncomplicated; F17.200 Nicotine dependence, unspecified, uncomplicated; I07.1 Rheumatic tricuspid insufficiency; F15.10 Other stimulant abuse, uncomplicated; M13.161 Monoarthritis, not elsewhere classified, right knee; I48.91 Unspecified atrial fibrillation; I50.9 Heart failure, unspecified; Z59.0 Homelessness; Z88.0 Allergy status to penicillin; Z88.1 Allergy status to other antibiotic agents; Z91.19 Patient's noncompliance with other medical treatment and regimen; Z79.899 Other long term (current) drug therapy; Z68.20 Body mass index [BMI] 20.0-20.9, adult; Z88.8 Allergy status to other drugs, medicaments and biological substances
CPT/HCPCS: 36415; 73564; 80359; 84145; 84560; 87806; 89050; 89060; 96361; 96374; 99285; J3490; 71045; 80048; 80053; 80074; 80202; 80307; 81001; 81025; 83605; 85025; 85651; 85810; 86140; 86592; 87040; 87070; 87075; 87077; 87086; 87186; 87205; 87491; 87521; 87591; 87635; 93005; 93306; G0378; J1100; J1170; J2185; J2250; J2405; J2704; J3010; J3370; G0475; G0480; J1630; J2060; J2270; J7030; J7050